=== PATIENT | female | born 1985 | race Caucasian/White ===

== ENCOUNTER 2019-07-06 16:48 | Emergency (ER) | payer MEDICARE, OTHER ==
--- NOTE | 2019-07-06 16:54 | ER Report ---
History and Physical Time Seen By MD: 16:51 HPI/ROS CHIEF COMPLAINT: Suicide attempt HISTORY OF PRESENT ILLNESS: 33-year-old female patient presents to emergency room with complaint of a suicide attempt. Patient was brought in by the [facility]. Patient states that she has been having some financial problems, concerns about getting her associate financial representative for going to community [employer]. She also states that she has problems with a friend of hers. She states that he had developed feelings for her which she did not reciprocate. Patient denies having any nausea, vomiting or diarrhea. She has taken almost a full 30 day supply of gabapentin, Seroquel as well as a bottle of Benadryl. She states she took that last night at 7 PM. She states that she feels like she has a dry mouth and is very tired today. The police state that they were contacted by the [facility] where she is living. When they got there they found her she was diaphoretic, and talking about how she was trying to commit suicide. They decided to detain her that time. Patient states she's also concerned about the possibility of her mother taking her dog. Which been placed at the animal correction for the time being. REVIEW OF SYSTEMS: Respiratory: No cough, no dyspnea. Cardiovascular: No chest pain, no palpitations. Gastrointestinal: No vomiting, no abdominal pain. Musculoskeletal: No back pain. Allergies: Coded Allergies: No Known Allergies (Verified Allergy, Unknown, 07/06/19) Home Meds Reported Medications Fluoxetine Hcl (PROZAC) 40 Mg Capsule, 40 MG PO QAM, CAPSULE 07/07/19 Gabapentin (NEURONTIN) 100 Mg Capsule, 200 MG PO TID PRN for ANXIETY, CAPSULE 07/07/19 Quetiapine Fumarate (SEROQUEL) 100 Mg Tablet, 100 MG PO QHS 07/07/19 Past Medical/Surgical History Patient has a past medical history of occasional heartburn, frequent UTI, depression, anxiety, suicide attempt. Patient denies any surgical history. Reviewed Nurses Notes: Yes Constitutional Vital Sign - Last 24 Hours 07/06/19 07/06/19 07/06/19 07/06/19 16:48 17:00 17:08 17:18 Temp 98.2 Pulse 112 118 113 Resp 14 26 B/P (MAP) 147/97 (114) 147/97 Pulse Ox 95 97 92 O2 Delivery Room Air 8/607/06/19 07/06/19 07/06/19 17:37 17:48 17:53 18:00 Pulse 105 106 Resp 18 30 B/P (MAP) 126/83 (97) 136/106 (116) Pulse Ox 93 91 07/06/19 07/06/19 07/06/19 07/06/19 18:05 18:30 18:35 18:40 Pulse 99 96 99 Resp 24 24 52 B/P (MAP) 126/87 (100) Pulse Ox 93 92 07/06/19 07/06/19 07/06/19 07/06/19 19:00 19:10 19:30 19:35 Pulse 93 90 Resp 22 17 B/P (MAP) 122/84 (97) 116/81 (93) Pulse Ox 90 91 07/06/19 07/06/19 07/06/19 07/06/19 20:00 20:05 20:30 20:35 Pulse 94 91 Resp 8 7 B/P (MAP) 113/73 (86) 110/71 (84) Pulse Ox 92 91 07/06/19 07/06/19 07/06/19 07/06/19 20:40 21:10 21:40 21:45 Pulse 90 88 90 89 Resp 7 17 20 17 Pulse Ox 91 91 92 92 07/06/19 07/06/19 07/06/19 07/06/19 22:00 22:15 22:30 22:45 Pulse 89 90 87 84 B/P (MAP) 99/65 (76) 104/64 (77) Pulse Ox 92 92 91 91 07/06/19 07/06/19 07/06/19 07/06/19 22:50 23:00 23:05 23:20 Pulse 84 84 79 B/P (MAP) 93/61 (72) Pulse Ox 92 92 91 07/06/19 07/06/19 07/06/19 07/07/19 23:30 23:35 23:50 00:00 Pulse 81 74 Resp 22 20 B/P (MAP) 100/62 (75) 121/90 (100) Pulse Ox 92 91 07/07/19 07/07/19 07/07/19 07/07/19 00:05 00:10 00:30 00:55 Pulse 81 80 ??? B/P (MAP) 104/71 (82) Pulse Ox 89 93 8/7/19 01:00 B/P (MAP) ???/??? (6845) Physical Exam General Appearance: The patient is alert, has no immediate need for airway protection and no current signs of toxicity. Respiratory: Chest is non tender, lungs are clear to auscultation. Cardiac: regular rate and rhythm Gastrointestinal: Abdomen is soft and non tender, no masses, bowel sounds normal. Musculoskeletal: Neck: Neck is supple and non tender. Extremities have full range of motion and are non tender. Skin: No rashes or lesions. Psych: Patient is alert and oriented 4, she has a slow rate of speech. She does become lost in her thoughts when talking. She is a difficult time keeping her thoughts on task. DIFFERENTIAL DIAGNOSIS: After history and physical exam differential diagnosis was considered for suicide attempt, overdose attempt, depression. Medical Decision Making Data Points Result Diagram: 07/06/19 1744 07/07/19 0000 Laboratory Hematology Test 07/06/19 17:44 White Blood Count 12.4 k/uL (4.5-11.0) H Red Blood Count 4.50 M/uL (4.17-5.56) Hemoglobin 14.6 g/dL (12.0-16.0) Hematocrit 43.0 % (34.0-47.0) Mean Corpuscular Volume 95.7 fL (80.0-96.0) Mean Corpuscular Hemoglobin 32.5 pg (26.0-33.0) Mean Corpuscular Hemoglobin Concent 34.0 g/dL (32.0-36.0) Red Cell Distribution Width 13.1 % (11.5-14.5) Platelet Count 194 K/uL (150-450) Mean Platelet Volume 7.9 fL (7.2-11.1) Neutrophils (%) (Auto) 86.4 % (39.4-72.5) H Lymphocytes (%) (Auto) 8.5 % (17.6-49.6) L Monocytes (%) (Auto) 4.8 % (4.1-12.4) Eosinophils (%) (Auto) 0.0 % (0.4-6.7) L Basophils (%) (Auto) 0.3 % (0.3-1.4) Nucleated RBC Relative Count (auto) 0.1 /100WBC Neutrophils # (Auto) 10.7 K/uL (2.0-7.4) H Lymphocytes # (Auto) 1.1 K/uL (1.3-3.6) L Monocytes # (Auto) 0.6 K/uL (0.3-1.0) Eosinophils # (Auto) 0.0 K/uL (0.0-0.5) Basophils # (Auto) 0.0 K/uL (0.0-0.1) Nucleated RBC Absolute Count (auto) 0.01 K/uL Chemistry Test 07/06/19 17:44 07/07/19 00:00 Thyroid Stimulating Hormone (TSH) 0.74 uIU/ml (0.46-4.68) Sodium Level 138 mmol/L (137-145) Potassium Level 3.7 mmol/L (3.5-5.0) Chloride Level 118 mmol/L (98-107) Carbon Dioxide Level 22 mmol/L (22-31) Blood Urea Nitrogen 12 mg/dl (7-18) Creatinine 1.00 mg/dl (0.52-1.04) Glomerular Filtration Rate Calc > 60.0 Random Glucose 91 mg/dl (75-110) Calcium Level 8.1 mg/dl (8.4-10.2) Magnesium Level 2.2 mg/dl (1.7-2.2) Total Bilirubin 0.5 mg/dl (0.2-1.3) Aspartate Amino Transf (AST/SGOT) 163 U/L (0-35) Alanine Aminotransferase (ALT/SGPT) 70 U/L (0-56) Alkaline Phosphatase 52 U/L (0-126) Total Protein 5.2 g/dl (6.3-8.2) Albumin 2.9 g/dl (3.5-5.0) Coagulation Test 07/07/19 00:00 Prothrombin Time 15.2 seconds (12.0-14.4) Prothromb Time International Ratio 1.19 Toxicology Test 07/06/19 17:30 07/06/19 17:44 07/06/19 20:51 Urine Opiates Screen Negative Urine Barbiturates Screen Negative Ur Tricyclic Antidepressants Screen Negative Urine Phencyclidine Screen Negative Urine Amphetamines Screen Negative Urine Benzodiazepines Screen Negative Urine Cocaine Screen Negative Urine Cannabinoids Screen Negative Acetaminophen Level < 10 ug/ml Serum Alcohol < 10 mg/dl Salicylates Level 225 mg/L Salicylate Last Dose Date unk Urinalysis Test 07/06/19 17:30 Urine Color Bria Urine Clarity Slightly-cloudy Urine pH Color interference Urine Specific [place] Color interference Urine Protein Color interference Urine Glucose (UA) Color interference Urine Ketones Color interference Urine Blood Color interference Urine Nitrite Color interference Urine Bilirubin Color interference Urine Urobilinogen Color interference Urine Leukocyte Esterase Color interference Urine RBC 3 /HPF (0-2/HPF) Urine WBC 28 /HPF (0-5/HPF) Urine Squamous Epithelial Cells Many /LPF (</=FEW) Urine Transitional Epithelial Cells Many /LPF (NONE-FEW) Urine Bacteria Few /HPF (NONE-FEW) Urine Hyaline Casts Few /LPF (NONE-FEW) Urine Mucus Few /HPF (NONE-FEW) Urine HCG, Qualitative Negative (NEGATIVE) Microbiology Microbiology Date/Time Source Procedure Growth Status 07/06/19 17:30 Clean Catch Midstream Ur Urine Culture - Final Complete EKG/Imaging EKG Interpretation 12 lead EKG done at 1824: Rhythm: normal sinus rhythm [place]: normal QRS: normal ST segments: normal Patient has prolonged QTC of 500 ms 12 lead EKG done at 2048: Rhythm: normal sinus rhythm [place]: normal QRS: normal ST segments: normal Patient has prolonged QTC of 499 ms ED Course/Re-evaluation ED Course Patient was admitted on exam room, history and physical were obtained. Differential diagnoses were considered. On examination lungs are clear, heart is regular, abdomen soft nontender. Patient did have a hard time maintaining her train of thought. She would become distracted very easily when speaking with her. Her speech was a little bit on the slow side, patient did manage to maintain good eye contact during interview. Lab work for a behavioral health admission were done. Patient had an elevated salicylate, elevated AST, negative Tylenol, negative alcohol. I discussed the case with poison control, they recommended getting EKG, monitoring salicylate level, hydrating with fluid. The recommend increasing the potassium to 4.5, magnesium 2. Patient was given a liter of normal saline. EKG was done. It did show a elevated QTC of 500 ms. I discussed the case with Dr. Childs, hospitalist, who felt with the overdose time being 24 hours ago the patient likely would be able to go to behavioral health. I discussed case with Dr. Guevara, who wanted to have repeat lab work done to make sure that labs were improving as well as a repeat EKG. I discussed the case again with poison control. They recommended monitoring the salicylate level every 2 hours and falls below 20, and monitoring the liver enzymes for the next 12 hours, with concerns that they may elevate if she had taken Tylenol. At that time I again spoke with Dr. Childs. He felt that there to be no point in admitting to behavioral health as he would be monitoring the patient is opposed to treating her condition. He felt that if her liver enzymes went up that she would need to be transferred to a higher level of care. I did repeat lab work, her AST decreased to 202, creatinine decreased from 1.4 down to 1.1, salicylate level continued to decrease down to 221, her ALT went from 90 down to 85. I spoke with Dr. Childs again, he felt that this time that he would be okay to repeat lab work at midnight and admitted to behavioral health as long as everything is looking good. He felt that patient was cleared medically with the improvement in her lab work. Decision to Disposition Date: Jul 07, 2019 Decision to Disposition Time: 00:00 Turned Over 07/06/2019 9:44:50 pm The care of the patient was turned over to Dr. Carver. Raymond Johnson [facility] I authorize my typed signature that I authenticated this report. Depart Departure Latest Vital Signs Vital Signs Date Time Temp Pulse Resp B/P (MAP) Pulse Ox O2 Delivery O2 Flow Rate FiO2 07/07/19 01:00 ???/??? (1665) 07/07/19 00:55 ??? 07/07/19 00:10 93 07/06/19 23:50 20 07/06/19 17:08 98.2 Room Air Impression: Primary Impression: Suicide attempt by drug overdose Condition: Improved Disposition: XFER TO [facility] ER - Title 25 MHE Evaluation Title 25 Evaluation Patient Detained By: Law Enforcement Referral Source: [facility] Date Patient Detained: Jul 06, 2019 Time Patient Detained: 17:50 Date Long Term Expires: Jul 09, 2019 Time Long Term Expires: 17:50 Legal Status: Police Hold: No Legal Status: Residence: State Resident Assessment Data Provided By: Patient, Law Enforcement HPI/ROS: Patient has been having difficult time with her finances as well as a friend. She decided she was going to commit suicide. She did take an overdose of her gabapentin, Seroquel, Benadryl. Please read history of present illness from note for more details. Admit due to SI or Attempt: Yes Suicide Plan: Has Plan with Access Alcohol or Drugs Involved: No Mental Status Exam General Appearance: Unkept, Psychomotor Retardation Speech: Delayed, Rambling Mood: Dysthmic/Depressed Affect: Flat Thought Process: Flight of Ideas Thought Content: Suicidal Ideation Sensorium: Clear Cognition: Alert & Oriented-Person Memory: Immediate, Recent, Remote Insight Judgment: Fair Sleep: Normal Hallucinations: Denies Delusions: Denies Current Risk & History Current Dangerous Risk Assessm: Current Suicide Attempt Past Dangerous Risk Assessm: Suicide Ideation-last 6mo Previous Suicide Attempt: Past - High Lethality Previous Psychiatric Illness: Yes Previous Psychiatric Treatment: Yes Risk Assessment & Disposition Evaluated Risk Assessment: Patient has obvious plan, as well as means to carry out plans. At this time she has a high risk for suicidality. Impression: Primary Impression: Suicide attempt by drug overdose Meets Mental Illness Req.: Yes Meets Dangerousness Req.: Yes Emergency Long Term to be: Upheld Date of Decision: Jul 06, 2019 Time of Decision: 18:00 Patient is Medically Stable at: Yes Disposition: RAYMOND HASSAN Jul 06, 2019 16:54
[2019-07-06 18:06] LABS: PLATELET COUNT, AUTOMATED 194 K/uL (150-450)
[2019-07-06] MEDS ORDERED: NS(*) 0.9% 1000 ML BAG 1,000 ML IV ONE ×2 (18:30→20:25)
--- NOTE | 2019-07-06 18:57 | EKG ---
FACILITY: [facility] [place] PATIENT NAME: CHIO CARDOZO : [id number] MR: [id number] V: [id number] EXAM DATE: ORDERING PHYSICIAN: JOSE ANGEL VASQUEZ TECHNOLOGIST: JACKIE Test Reason : Blood Pressure : / mmHG Vent. Rate : 098 BPM Atrial Rate : 098 BPM P-R Int : 124 ms QRS Dur : 088 ms QT Int : 392 ms P-R-T Axes : 066 030 040 degrees QTc Int : 500 ms Normal sinus rhythm Prolonged QT Abnormal ECG No previous ECGs available Confirmed by ANITA RIVERO ([id number]) on 07/06/2019 8:12:04 PM Referred By: PEDRO Confirmed By:ANITA RIVERO
[2019-07-06] MEDS ORDERED: KCL (*) 20 MEQ/100 ML PREMIX 100 ML IV ONE (20:25)
[2019-07-06] MEDS ORDERED: MAGNESIUM SUL/D5W* 1 GM/100 ML 100 ML IVPB ONE (20:25)
--- NOTE | 2019-07-06 21:13 | EKG ---
FACILITY: [facility] [place] PATIENT NAME: CHIO CARDOZO : [id number] MR: [id number] V: [id number] EXAM DATE: ORDERING PHYSICIAN: JOSE ANGEL VASQUEZ TECHNOLOGIST: VON Eric Reason : ELEVATED QTC Blood Pressure : / mmHG Vent. Rate : 091 BPM Atrial Rate : 091 BPM P-R Int : 130 ms QRS Dur : 092 ms QT Int : 406 ms P-R-T Axes : 055 015 034 degrees QTc Int : 499 ms Normal sinus rhythm Nonspecific T wave abnormality Prolonged QT When compared with ECG of 06-JUL-2019 18:25, No significant change was found Confirmed by ANITA RIVERO ([id number]) on 07/07/2019 1:22:09 AM Referred By: Confirmed By:ANITA RIVERO
[2019-07-07 00:21] LABS: INR 1.19
--- NOTE | 2019-07-07 05:09 | EKG ---
FACILITY: [facility] - [place] PATIENT NAME: CHIO CARDOZO : [id number] MR: [id number] V: [id number] EXAM DATE: ORDERING PHYSICIAN: JOSE ANGEL VASQUEZ TECHNOLOGIST: VON Eric Reason : REPEAT EKG Blood Pressure : / mmHG Vent. Rate : 080 BPM Atrial Rate : 080 BPM P-R Int : 136 ms QRS Dur : 094 ms QT Int : 336 ms P-R-T Axes : 041 044 035 degrees QTc Int : 387 ms Sinus rhythm Possible left atrial enlargement Nonspecific T wave abnormality Abnormal ECG When compared with ECG of 06-JUL-2019 20:49, QT has shortened Confirmed by SCOUT FORD ([id number]) on 07/07/2019 1:26:53 PM Referred By: Confirmed By:SCOUT FORD
[2019-07-07] MEDS ORDERED: FLUO40CA76 PO (14:31)
[2019-07-07] MEDS ORDERED: QUET100T29 PO (14:31)
[2019-07-07] MEDS ORDERED: GABA-488 PO (14:31)
== END 2019-07-07 01:20 ==
LOC: ER 16:50
DX: T42.6X2A Poisoning by other antiepileptic and sedative-hypnotic drugs, intentional self-harm, initial encounter (principal); F41.9 Anxiety disorder, unspecified; F32.9 Major depressive disorder, single episode, unspecified; I45.81 Long QT syndrome; R79.89 Other specified abnormal findings of blood chemistry
CPT/HCPCS: 80305; 81001; 81025; 83735; 84443; 85025; 85610; 87088; 93005; 96361; 96365; 96366; 99284; G0480; J3475; J3480; J7030; 80320; 80329; 82040; 82247; 82310; 82374; 82435; 82565; 82947; 84075; 84132; 84155; 84295; 84450; 84460; 84520

== ENCOUNTER 2019-07-07 00:54 | Inpatient (IN) | payer MEDICARE, OTHER ==
[~2019-07-07] VITALS: Ht 167.6 cm; Wt 56.7 kg
[2019-07-07] MEDS ORDERED: MAG HYD/AL HYD/SIMETH 30ML UDC PO PRN (01:30)
[2019-07-07 02:05] VITALS: BP 120/80
--- NOTE | 2019-07-07 06:04 | EKG ---
FACILITY: [facility] [place] PATIENT NAME: CHIO CARDOZO : [id number] MR: [id number] V: [id number] EXAM DATE: ORDERING PHYSICIAN: MARK SANDHU TECHNOLOGIST: VON Test Reason : OD Blood Pressure : / mmHG Vent. Rate : 075 BPM Atrial Rate : 075 BPM P-R Int : 132 ms QRS Dur : 094 ms QT Int : 420 ms P-R-T Axes : 056 030 049 degrees QTc Int : 469 ms Sinus rhythm Possible Left atrial enlargement Nonspecific T wave abnormality Abnormal ECG Confirmed by SCOUT FORD ([id number]) on 07/07/2019 1:28:05 PM Referred By: Confirmed By:SCOUT FORD
[2019-07-07 06:42] LABS: PLATELET COUNT, AUTOMATED 151 K/uL (150-450)
[2019-07-07] MEDS: MULTIVITAMINS TAB PO SCH (08:34)
[2019-07-07] MEDS: THIAMINE HCL 100 MG TAB PO SCH (08:34)
[2019-07-07] MEDS: FOLIC ACID 1 MG TAB PO SCH (08:34)
[2019-07-07 09:09] VITALS: BP 109/68
[2019-07-07] MEDS: TRIMETH/SULFA DS 160-800MG TAB PO SCH ×2 (09:17→21:00)
[2019-07-07 09:31] VITALS: BP 109/68
[2019-07-07] MEDS: DIAZEPAM 10 MG TAB PO PRN ×4 (09:38→21:37)
[2019-07-07 10:51] VITALS: BP 98/68
[2019-07-07 13:10] VITALS: BP 107/70
[2019-07-07] MEDS ORDERED: QUET100T29 PO (14:31)
[2019-07-07] MEDS ORDERED: GABA-488 PO (14:31)
[2019-07-07] MEDS ORDERED: FLUO40CA76 PO (14:31)
--- NOTE | 2019-07-07 16:14 | EKG ---
FACILITY: [facility] - [place] PATIENT NAME: CHIO CARDOZO : [id number] MR: [id number] V: [id number] EXAM DATE: ORDERING PHYSICIAN: MARK SANDHU TECHNOLOGIST: Test Reason : previous abnormal EKG Blood Pressure : / mmHG Vent. Rate : 064 BPM Atrial Rate : 064 BPM P-R Int : 130 ms QRS Dur : 088 ms QT Int : 444 ms P-R-T Axes : 060 039 031 degrees QTc Int : 458 ms Sinus rhythm Possible left atrial enlargement Nonspecific T wave findings - similar to previous Confirmed by SCOUT FORD ([id number]) on 07/07/2019 6:32:36 PM Referred By: Confirmed By:SCOUT FORD
[2019-07-07 17:25] VITALS: BP 100/70
[2019-07-07] MEDS ORDERED: DIAZEPAM 10 MG TAB ONE (18:12)
[2019-07-08 06:27] VITALS: BP 92/57
[2019-07-08] MEDS: FOLIC ACID 1 MG TAB PO SCH (08:50)
[2019-07-08] MEDS: TRIMETH/SULFA DS 160-800MG TAB PO SCH ×3 (08:50→20:51)
[2019-07-08] MEDS: MULTIVITAMINS TAB PO SCH (08:50)
[2019-07-08] MEDS: THIAMINE HCL 100 MG TAB PO SCH (08:51)
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
[2019-07-08 09:00] VITALS: BP 94/50
--- NOTE | 2019-07-08 12:04 | BHS Progress Note ---
[facility] - Subjective Progress Notes Subjective "Someone tries to kill themselves, and you treat them like dirt". Patient responding to this provider's attempts to motivate patient to go to therapy group in an effort to get well. Patient stating "It isn't mandatory., and it is stupid." Patient showing little motivation to get well today, will continue to encourage compliance, and will make contact with her Mother, with whome patient has resided her whole adult life. Patient may need an extension hearing if relationship with mother cannot reconcile, as patient will be homeless, with no finances, and thus far has showed limited interest in recovery. Suicidal Ideation: Resolving Homicidal Ideation: None [facility] - Objective Physical Exam Vital Signs Vital Signs Date Time Temp Pulse Resp B/P (MAP) Pulse Ox O2 Delivery O2 Flow Rate FiO2 07/08/19 09:00 99.1 94 12 94/50 (65) 94 Room Air 07/07/19 13:15 1.0 Muscle Strength and Tone: WNL Gait and Station: Steady [facility] Medications Reviewed: Side Effects, Benefits of Medication, Risks Allergies Reviewed: No Mental Status Exam General Appearance: Casual, Well Groomed; No Good Eye Contact, No Cooperative, No Polite, No Good Interaction; Psychomotor Retardation Speech: Clear, Delayed Mood: Dysthmic/Depressed Affect: Sad, Withdrawn, Agitated Thought Process: Organized, Logical, Goal Directed; No Loose Associations, No Flight of Ideas Thought Content: Suicidal Ideation (resolving somewhat); No Homicidal Ideation, No Delusions, No Auditory Halllucinations, No Visual Hallucinations, No Thought Broadcasting, No Ideas of Reference, No Obsessions, No Compulsions Sensorium: Clear Cognition: Alert & Oriented-Person, Alert & Oriented-Place, Alert & Oriented- Time; No Evdcz-Mimabjrp-Tvbbnqvsu (partially) Memory: Immediate, Recent, Remote Intelligence: Average Insight Judgment: Poor (limited due to maladaptive stress coping mechanisms, a nd continued drug, alcohol use. 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 borderline and dependent. Last Edited By: Mark Sandhu on Jul 08, 2019 12:01 Status: Chronic (3) Major depression, recurrent Status: Chronic Condition 1. continue to encourage compliance with treatment. 2. evaluate need of hearing. 3. historical poor use of medications. 4. patient in need of rehab. Problem Qualifiers (1) Major depression, recurrent: Major depression episode severity: severe Psychotic features: without psychotic features MARK SANDHU MD Jul 08, 2019 12:04
[2019-07-08 13:00] VITALS: BP 98/54
[2019-07-08] MEDS: IBUPROFEN 600 MG TAB PO PRN (13:35)
--- NOTE | 2019-07-08 15:06 | Antimicrobial Stewardship ---
Antimicrobial Stewardship Empiricly appropriate: Yes (On Bactrim DS bid for UTI) Approriate Cultures done: Yes Reviewed for Drug Interaction: Yes Clinically stable/improving: Yes Determine cumulative duration: 3-7 days MADI PEPE Jul 08, 2019 15:06
[2019-07-08 17:05] VITALS: BP 104/65
[2019-07-08] MEDS: QUEtiapine FUM 100 MG TAB PO SCH (20:50)
[2019-07-09 04:00] VITALS: BP 96/53
[2019-07-09] MEDS: THIAMINE HCL 100 MG TAB PO SCH (08:22)
[2019-07-09] MEDS: TRIMETH/SULFA DS 160-800MG TAB PO SCH ×2 (08:22→20:33)
[2019-07-09] MEDS: FOLIC ACID 1 MG TAB PO SCH (08:22)
[2019-07-09] MEDS: MULTIVITAMINS TAB PO SCH (08:22)
--- NOTE | 2019-07-09 10:41 | BHS Progress Note ---
[facility] - Subjective Progress Notes Subjective Patient remains very irritated, sarcastic, with inconsistent thought processes, Patient continues to recover from significant overdose with intentions of suicide, and psychotic features, patient flushed cell phone down toilet in [employer], due to paranoia. Patient's Mother verbalized concerns of psychosis at home for the last two months, potentially due to cough syrup abuse. Patient not taking an active role in her treatment at this time. Patient will need a ten day extension hearing today, in order to have time for resolution of current symptoms, and to promote a stable living situation, upon discharge. Suicidal Ideation: Resolving Homicidal Ideation: None [facility] - Objective Physical Exam Vital Signs Vital Signs Date Time Temp Pulse Resp B/P (MAP) Pulse Ox O2 Delivery O2 Flow Rate FiO2 07/09/19 04:00 98.6 61 15 96/53 (67) 93 Room Air 07/07/19 13:15 1.0 Muscle Strength and Tone: WNL Gait and Station: Steady [facility] Medications Reviewed: Side Effects, Benefits of Medication, Risks Allergies Reviewed: No Mental Status Exam General Appearance: Casual, Well Groomed; No Good Eye Contact, No Cooperative, No Polite, No Good Interaction; Psychomotor Agitation; No Psychomotor Retardation Speech: Clear, Spontaneous, Normal Rate, Normal Rhythm, Normal Volume; No Delayed Mood: Dysthmic/Depressed Affect: Sad, Withdrawn, Agitated Thought Process: No Organized, No Logical; Goal Directed, Loose Associations; No Flight of Ideas Thought Content: Suicidal Ideation (resolving somewhat); No Homicidal Ideation, No Delusions, No Auditory Halllucinations, No Visual Hallucinations, No Thought Broadcasting, No Ideas of Reference, No Obsessions, No Compulsions Sensorium: Clear Cognition: Alert & Oriented-Person, Alert & Oriented-Place, Alert & Oriented- Time; No Todoy-Jyoiqulw-Yoqhachoa (partially) Memory: Immediate, Recent, Remote Intelligence: Average Insight Judgment: Poor (limited due to maladaptive stress coping mechanisms, and continued drug, alcohol use. ) Result Diagram: 07/07/1963007/07/19630 [facility] Assessment and Plan Sfpo-cw-Dyyk Encounter Date: Jul 09, 2019 Vjqt-tc-Haid Encounter Time: 10:30 [facility] Plan: Necessary Precautions, Individual/Group Therapy, Admin/Titrate Meds, Educate Patient Tobacco Medications: Not Appropriate Condition Multpiple Antipsychotics Used: No Problems: (1) Substance induced mood disorder Optional Permanent Comment: cough syrup, alcohol, cannabis, psychotic symptoms possibly related to use. 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 borderline and dependent. Likely borderline personality disorder with dependent traits. Last Edited By: Mark Sandhu on Jul 09, 2019 10:39 Status: Chronic (3) Major depression, recurrent Status: Chronic Condition 1. continue treatment. 2. encourage intermediate placement to learn independent living skills in this patient with highly limited life skills. 3. review medications. Problem Qualifiers (1) Major depression, recurrent: Major depression episode severity: severe Psychotic features: with psychotic features MARK SANDHU MD Jul 09, 2019 10:41
[2019-07-09] MEDS: FLUoxetine HCL 20 MG CAP PO SCH (11:13)
[2019-07-09 12:25] VITALS: BP 102/68
[2019-07-09 18:30] VITALS: BP 115/74
[2019-07-09] MEDS: QUEtiapine FUM 100 MG TAB PO SCH (20:33)
[2019-07-10 06:13] VITALS: BP 103/77
[2019-07-10] MEDS: MULTIVITAMINS TAB PO SCH (07:58)
[2019-07-10] MEDS: FOLIC ACID 1 MG TAB PO SCH (07:58)
[2019-07-10] MEDS: FLUoxetine HCL 20 MG CAP PO SCH (07:58)
[2019-07-10] MEDS: THIAMINE HCL 100 MG TAB PO SCH (07:58)
[2019-07-10] MEDS: TRIMETH/SULFA DS 160-800MG TAB PO SCH ×2 (07:58→21:35)
--- NOTE | 2019-07-10 10:58 | BHS Progress Note ---
[facility] - Subjective Progress Notes Subjective " I'm okay. I slept decent. I made an impulsive mistake and I'm here doing my penance." She denies Si today reporting that her last SI was the day the she took the impulsive overdose. She rates her depression level a 7, anxiety level an 8, anger 4. Suicidal Ideation: None Homicidal Ideation: None [facility] - Objective Physical Exam Vital Signs Vital Signs Date Time Temp Pulse Resp B/P (MAP) Pulse Ox O2 Delivery O2 Flow Rate FiO2 07/10/19 06:13 98.8 61 15 103/77 (86) 93 Room Air 07/07/19 13:15 1.0 Muscle Strength and Tone: WNL Gait and Station: Steady [facility] Medications Reviewed: Side Effects, Benefits of Medication, Risks Allergies Reviewed: No Mental Status Exam General Appearance: Casual, Well Groomed, Good Eye Contact, Cooperative; No Polite, No Good Interaction; Psychomotor Agitation; No Psychomotor Retardation Speech: Clear, Spontaneous, Normal Rate, Normal Rhythm, Normal Volume; No Delayed Mood: Dysthmic/Depressed Affect: Sad, Withdrawn, Agitated Thought Process: No Organized, No Logical; Goal Directed, Loose Associations; No Flight of Ideas Thought Content: Suicidal Ideation (denies today); No Homicidal Ideation, No Delusions, No Auditory Halllucinations, No Visual Hallucinations, No Thought Broadcasting, No Ideas of Reference, No Obsessions, No Compulsions Sensorium: Clear Cognition: Alert & Oriented-Person, Alert & Oriented-Place, Alert & Oriented- Time; No Sayoj-Wjparfpj-Wabwwcwft (partially) Memory: Immediate, Recent, Remote Intelligence: Average Insight Judgment: Poor (limited due to maladaptive stress coping mechanisms, and continued drug, alcohol use. ) Result Diagram: 07/07/1931 07/07/19630 [facility] Assessment and Plan Umop-rr-Erzd Encounter Date: Jul 10, 2019 Tapo-uf-Cjwi Encounter Time: 09:45 [facility] Plan: Necessary Precautions, Individual/Group Therapy, Admin/Titrate Meds, Educate Patient Tobacco Medications: Not Appropriate Condition Multpiple Antipsychotics Used: No Problems: (1) Substance induced mood disorder Optional Permanent Comment: cough syrup, alcohol, cannabis, psychotic symptoms possibly related to use. 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 borderline and dependent. Likely borderline personality disorder with dependent traits. Last Edited By: Fransico Calderon on Jul 09, 2019 10:39 Status: Chronic Condition Client is seen in treatment team room with therapist and RN in attendance. She reports that her sleep is decent. She acknowledges feeling depressed with anxiety without thoughts of self harm. She indicates that her plan is to return home to her mother and resume treatment with her psychiatric providers in [facility]. No medication changes today. Will continue to monitor and provide support. MIHAELA ASHER NP Jul 10, 2019 10:58
[2019-07-10 11:55] VITALS: BP 98/56
[2019-07-10 20:15] VITALS: BP 112/65
[2019-07-10] MEDS: QUEtiapine FUM 100 MG TAB PO SCH (21:35)
[2019-07-11 06:14] VITALS: BP 92/53
[2019-07-11] MEDS: MULTIVITAMINS TAB PO SCH (07:57)
[2019-07-11] MEDS: FOLIC ACID 1 MG TAB PO SCH (07:57)
[2019-07-11] MEDS: THIAMINE HCL 100 MG TAB PO SCH (07:57)
[2019-07-11] MEDS: FLUoxetine HCL 20 MG CAP PO SCH (07:57)
[2019-07-11] MEDS: TRIMETH/SULFA DS 160-800MG TAB PO SCH ×2 (07:57→21:39)
[2019-07-11] MEDS: IBUPROFEN 600 MG TAB PO PRN (07:57)
--- NOTE | 2019-07-11 10:23 | EKG ---
FACILITY: [facility] PATIENT NAME: CHIO CARDOZO : [id number] MR: [id number] V: [id number] EXAM DATE: ORDERING PHYSICIAN: MIHAELA ASHER TECHNOLOGIST: ARACELIS Test Reason : OD Blood Pressure : / mmHG Vent. Rate : 052 BPM Atrial Rate : 052 BPM P-R Int : 124 ms QRS Dur : 080 ms QT Int : 438 ms P-R-T Axes : 059 055 026 degrees QTc Int : 407 ms Sinus bradycardia Otherwise normal ECG Confirmed by ESTHER BORJA ([id number]) on 07/11/2019 6:13:56 PM Referred By: Sophie ASHER Confirmed By:ESTHER BORJA
--- NOTE | 2019-07-11 10:39 | BHS Progress Note ---
[facility] - Subjective Progress Notes Subjective "I'm okay. Just doing what I need to do." Depression level rated 7, anxiety 8, anger 0, SI denied. She reports sleeping "decent" with a little tossing and turning. She denies needs and has a plan to work on her relapse prevention plan today. Suicidal Ideation: None Homicidal Ideation: None [facility] - Objective Physical Exam Vital Signs Vital Signs Date Time Temp Pulse Resp B/P (MAP) Pulse Ox O2 Delivery O2 Flow Rate FiO2 07/11/19 06:14 98.9 52 92/53 (66) 94 Room Air 07/10/19 20:15 12 07/07/19 13:15 1.0 Muscle Strength and Tone: WNL Gait and Station: Steady [facility] Medications Reviewed: Side Effects, Benefits of Medication, Risks Allergies Reviewed: No Mental Status Exam General Appearance: Casual, Well Groomed, Good Eye Contact, Cooperative, Polite, Good Interaction; No Unkept, No Tearful, No Psychomotor Retardation Speech: Clear, Spontaneous, Normal Rate, Normal Rhythm, Normal Volume; No Delayed Mood: Dysthmic/Depressed Affect: Sad, Withdrawn, Anxious, Agitated Thought Process: Organized, Logical, Goal Directed; No Loose Associations, No Flight of Ideas Thought Content: No Suicidal Ideation (denies today), No Homicidal Ideation, No Delusions, No Auditory Halllucinations, No Visual Hallucinations, No Thought Broadcasting, No Ideas of Reference, No Obsessions, No Compulsions Sensorium: Clear Cognition: Alert & Oriented-Person, Alert & Oriented-Place, Alert & Oriented- Time; No Flyzy-Bmtqaxop-Cpmcuyeer (partially) Memory: Immediate, Recent, Remote Intelligence: Average Insight Judgment: Poor (limited due to maladaptive stress coping mechanisms, and continued drug, alcohol use. ) Result Diagram: 07/07/1963007/07/19630 [facility] Assessment and Plan Nllj-kp-Vlxz Encounter Date: Jul 11, 2019 Jxcc-tp-Mzmm Encounter Time: 09:30 [facility] Plan: Necessary Precautions, Individual/Group Therapy, Admin/Titrate Meds, Educate Patient Tobacco Medications: Not Appropriate Condition Multpiple Antipsychotics Used: No Problems: (1) Substance induced mood disorder Optional Permanent Comment: cough syrup, alcohol, cannabis, psychotic symptoms possibly related to use. 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 borderline and dependent. Likely borderline personality disorder with dependent traits. Last Edited By: Fransico Calderon on Jul 09, 2019 10:39 Status: Chronic Condition She reports ongoing depression and anxiety symptoms without thoughts of suicide or self harm. She denies needs and is cooperative with staff. She reports having future appointments scheduled with her psychiatrist and therapist in [place]. PLAN: Treatment team meeting tomorrow morning with her mother involved per conference call. Will continue prozac and seroquel at current doses, have not resumed full previous doses status post overdose. Will obtain EKG today. Continue discharge planning. MIHAELA ASHER NP Jul 11, 2019 10:39
[2019-07-11 13:05] VITALS: BP 100/60
[2019-07-11] MEDS: QUEtiapine FUM 100 MG TAB PO SCH (21:39)
[2019-07-11 21:45] VITALS: BP 107/70
[2019-07-12 06:27] VITALS: BP 99/59
[2019-07-12] MEDS: TRIMETH/SULFA DS 160-800MG TAB PO SCH ×2 (08:09→21:13)
[2019-07-12] MEDS: MULTIVITAMINS TAB PO SCH (08:09)
[2019-07-12] MEDS: FLUoxetine HCL 20 MG CAP PO SCH (08:09)
[2019-07-12] MEDS: FOLIC ACID 1 MG TAB PO SCH (08:09)
[2019-07-12] MEDS: THIAMINE HCL 100 MG TAB PO SCH (08:09)
[2019-07-12 10:23] VITALS: BP 114/70
--- NOTE | 2019-07-12 12:24 | BHS Progress Note ---
[facility] - Subjective Progress Notes Subjective Patient noted to be putting forth an effort to grow and develop, and does not seem to be just merely playing along. Patient talkative today, with much less finger pointing at others. Will start planning for discharge toward the end of the ten day period. Will encourage that growth and development continue on an outpatient status. Patient demonstrating intelligence, and reflecting on substance use, particularly psychotic symptoms that were present prior to admission. Mood improving, no suicidal or homicidal ideation. No medication changes. Suicidal Ideation: None Homicidal Ideation: None [facility] - Objective Physical Exam Vital Signs Vital Signs Date Time Temp Pulse Resp B/P (MAP) Pulse Ox O2 Delivery O2 Flow Rate FiO2 07/12/19 10:23 98.8 59 114/70 (85) 98 Room Air 07/11/19 13:05 16 Muscle Strength and Tone: WNL Gait and Station: Steady [facility] Medications Reviewed: Side Effects, Benefits of Medication, Risks Allergies Reviewed: No Mental Status Exam General Appearance: Casual, Well Groomed, Good Eye Contact, Cooperative, Polite, Good Interaction; No Unkept, No Tearful; Psychomotor Agitation (minimal ); No Psychomotor Retardation, No Bizarre Mannerisms, No Tics Speech: Clear, Spontaneous, Normal Rate, Normal Rhythm, Normal Volume, Normal Tone; No Delayed Mood: Dysthmic/Depressed (improving) Affect: Sad, Withdrawn, Anxious, Agitated Thought Process: Organized, Logical, Goal Directed; No Loose Associations, No Flight of Ideas Thought Content: No Suicidal Ideation, No Homicidal Ideation, No Delusions, No Auditory Halllucinations, No Visual Hallucinations, No Thought Broadcasting, No Ideas of Reference, No Obsessions, No Compulsions Sensorium: Clear Cognition: Alert & Oriented-Person, Alert & Oriented-Place, Alert & Oriented- Time; No Txnhv-Swuhaywb-Vbbcikzbu (partially) Memory: Immediate, Recent, Remote Intelligence: Average Insight Judgment: Poor (limited due to maladaptive stress coping mechanisms, and continued drug, alcohol use. ) [facility] Assessment and Plan Qkyr-ru-Iqvd Encounter Date: Jul 12, 2019 Dvgz-iq-Aptt Encounter Time: 12:00 [facility] Plan: Necessary Precautions, Individual/Group Therapy, Admin/Titrate Meds, Educate Patient Tobacco Medications: Not Appropriate Condition Multpiple Antipsychotics Used: No Problems: (1) Substance induced mood disorder Optional Permanent Comment: cough syrup, alcohol, cannabis, psychotic symptoms possibly related to use. 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 borderline and dependent. Likely borderline personality disorder with dependent traits. Last Edited By: Mark Sandhu on Jul 09, 2019 10:39 Status: Chronic (3) Major depression, recurrent Status: Chronic Condition 1. continue treatment. 2. repeat UA 3. labs tomorrow. 4. no medication changes. Problem Qualifiers (1) Major depression, recurrent: Major depression episode severity: severe Psychotic features: with psychotic features MARK SANDHU MD Jul 12, 2019 12:24
[2019-07-12] MEDS: IBUPROFEN 600 MG TAB PO PRN ×2 (13:43→20:15)
[2019-07-12 21:09] VITALS: BP 102/75
[2019-07-12] MEDS: QUEtiapine FUM 100 MG TAB PO SCH (21:13)
[2019-07-13 05:54] VITALS: BP 100/55
[2019-07-13 07:36] LABS: LDL CHOLESTEROL 108 mg/dl
[2019-07-13] MEDS: FLUoxetine HCL 20 MG CAP PO SCH (08:12)
[2019-07-13] MEDS: FOLIC ACID 1 MG TAB PO SCH (08:12)
[2019-07-13] MEDS: TRIMETH/SULFA DS 160-800MG TAB PO SCH ×2 (08:12→21:27)
[2019-07-13] MEDS: THIAMINE HCL 100 MG TAB PO SCH (08:12)
[2019-07-13] MEDS: MULTIVITAMINS TAB PO SCH (08:12)
[2019-07-13 09:18] LABS: PLATELET COUNT, AUTOMATED 253 K/uL (150-450)
--- NOTE | 2019-07-13 10:11 | BHS Progress Note ---
[facility] - Subjective Progress Notes Subjective Patient cooperative today, and taking an honest active role in her treatment, participating in group and individual therapy. No medication changes today, sleep and appetite good, mood good and continues to improve. Will look at discharge toward the end of the week. No other concerns. Suicidal Ideation: None Homicidal Ideation: None [facility] - Objective Physical Exam Vital Signs Vital Signs Date Time Temp Pulse Resp B/P (MAP) Pulse Ox O2 Delivery O2 Flow Rate FiO2 07/13/19 05:54 99.0 47 100/55 (70) 95 Room Air 07/11/19 13:05 16 Muscle Strength and Tone: WNL Gait and Station: Steady [facility] Medications Reviewed: Side Effects, Benefits of Medication, Risks Allergies Reviewed: No Mental Status Exam General Appearance: Casual, Well Groomed, Good Eye Contact, Cooperative, Polite, Good Interaction; No Unkept, No Tearful; Psychomotor Agitation (minimal ); No Psychomotor Retardation, No Bizarre Mannerisms, No Tics Speech: Clear, Spontaneous, Normal Rate, Normal Rhythm, Normal Volume, Normal Tone; No Delayed Mood: Dysthmic/Depressed (improving) Affect: Sad, Withdrawn, Anxious, Agitated Thought Process: Organized, Logical, Goal Directed; No Loose Associations, No Flight of Ideas Thought Content: No Suicidal Ideation, No Homicidal Ideation, No Delusions, No Auditory Halllucinations, No Visual Hallucinations, No Thought Broadcasting, No Ideas of Reference, No Obsessions, No Compulsions Sensorium: Clear Cognition: Alert & Oriented-Person, Alert & Oriented-Place, Alert & Oriented- Time; No Qocri-Jkofqrlf-Smnmjifun (partially) Memory: Immediate, Recent, Remote Intelligence: Average Insight Judgment: Poor (limited due to maladaptive stress coping mechanisms, and continued drug, alcohol use. ) Result Diagram: 07/13/1961707/13/19617 [facility] Assessment and Plan Plfj-pw-Gdsn Encounter Date: Jul 13, 2019 Vmgk-gb-Ximy Encounter Time: 11:00 [facility] Plan: Necessary Precautions, Individual/Group Therapy, Admin/Titrate Meds, Educate Patient Tobacco Medications: Not Appropriate Condition Multpiple Antipsychotics Used: No Problems: (1) Substance induced mood disorder Optional Permanent Comment: cough syrup, alcohol, cannabis, psychotic symptoms possibly related to use. 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 borderline and de pendent. Likely borderline personality disorder with dependent traits. Last Edited By: Mark Sandhu on Jul 09, 2019 10:39 Status: Chronic (3) Major depression, recurrent Status: Chronic Condition 1. continue treatment. 2. discharge toward end of week. 3. no medication changes. 4. labwork continues to normalize. Problem Qualifiers (1) Major depression, recurrent: Major depression episode severity: severe Psychotic features: with psychotic features MARK SANDHU MD Jul 13, 2019 10:11
[2019-07-13] MEDS: IBUPROFEN 600 MG TAB PO PRN ×2 (12:09→18:50)
[2019-07-13 13:11] VITALS: BP 121/69
[2019-07-13] MEDS: QUEtiapine FUM 100 MG TAB PO SCH (21:27)
[2019-07-13 21:36] VITALS: BP 111/72
[2019-07-14 04:14] VITALS: BP 96/57
[2019-07-14] MEDS: FLUoxetine HCL 20 MG CAP PO SCH (08:21)
[2019-07-14] MEDS: THIAMINE HCL 100 MG TAB PO SCH (08:21)
[2019-07-14] MEDS: FOLIC ACID 1 MG TAB PO SCH (08:21)
[2019-07-14] MEDS: MULTIVITAMINS TAB PO SCH (08:21)
[2019-07-14] MEDS ORDERED: TRIMETH/SULFA DS 160-800MG TAB PO ONE (08:30)
[2019-07-14] MEDS: IBUPROFEN 600 MG TAB PO PRN (12:15)
--- NOTE | 2019-07-14 13:27 | BHS Progress Note ---
[facility] - Subjective Progress Notes Subjective Patient continues to show an active role in her treatment. Looking forward to going home, and avoiding further substance use. Will plan for discharge tomorrow. Will continue current medications. Sleep and appetite intact. No other concerns. Suicidal Ideation: None Homicidal Ideation: None [facility] - Objective Physical Exam Vital Signs Vital Signs Date Time Temp Pulse Resp B/P (MAP) Pulse Ox O2 Delivery O2 Flow Rate FiO2 07/14/19 04:14 97.7 48 15 96/57 (70) 94 Room Air Muscle Strength and Tone: WNL Gait and Station: Steady [facility] Medications Reviewed: Side Effects, Benefits of Medication, Risks Allergies Reviewed: No Mental Status Exam General Appearance: Casual, Well Groomed, Good Eye Contact, Cooperative, Polite, Good Interaction; No Unkept, No Tearful; Psychomotor Agitation (minimal ); No Psychomotor Retardation, No Bizarre Mannerisms, No Tics Speech: Clear, Spontaneous, Normal Rate, Normal Rhythm, Normal Volume, Normal Tone; No Delayed Mood: Dysthmic/Depressed (improving) Affect: Full and Appropriate, Calm; No Sad, No Withdrawn, No Anxious, No Agitated Thought Process: Organized, Logical, Goal Directed; No Loose Associations, No Flight of Ideas Thought Content: No Suicidal Ideation, No Homicidal Ideation, No Delusions, No Auditory Halllucinations, No Visual Hallucinations, No Thought Broadcasting, No Ideas of Reference, No Obsessions, No Compulsions Sensorium: Clear Cognition: Alert & Oriented-Person, Alert & Oriented-Place, Alert & Oriented- Time, Otdse-Ojxasbek-Fpjwftqzn Memory: Immediate, Recent, Remote Intelligence: Average Insight Judgment: Poor (in absence of alcohol and substance use. ), Fair Result Diagram: 07/13/1961707/13/19617 [facility] Assessment and Plan Mxiy-xw-Adhr Encounter Date: Jul 14, 2019 Vvrg-gr-Gqvf Encounter Time: 10:00 [facility] Plan: Necessary Precautions, Individual/Group Therapy, Admin/Titrate Meds, Educate Patient Tobacco Medications: Not Appropriate Condition Multpiple Antipsychotics Used: No Problems: (1) Substance induced mood disorder Optional Permanent Comment: cough syrup, alcohol, cannabis, psychotic symptoms possibly related to use. 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 borderline and dependent. Likely borderline personality disorder with dependent traits. Last Edited By: Mark Sandhu on Jul 09, 2019 10:39 Status: Chronic (3) Major depression, recurrent Status: Chronic Condition 1. continue treatment 2. possible discharge tomorrow. Problem Qualifiers (1) Major depression, recurrent: Major depression episode severity: severe Psychotic features: with psychotic features MARK SANDHU MD Jul 14, 2019 13:27
[2019-07-14 13:31] VITALS: BP 109/62
[2019-07-14] MEDS: QUEtiapine FUM 100 MG TAB PO SCH (20:39)
[2019-07-14 21:20] VITALS: BP 101/66
[2019-07-15 05:14] VITALS: BP 97/59
[2019-07-15] MEDS: FLUoxetine HCL 20 MG CAP PO SCH (08:38)
[2019-07-15] MEDS: FOLIC ACID 1 MG TAB PO SCH (08:38)
[2019-07-15] MEDS: MULTIVITAMINS TAB PO SCH (08:39)
[2019-07-15] MEDS: THIAMINE HCL 100 MG TAB PO SCH (08:39)
[2019-07-15] MEDS ORDERED: FLUO-177 PO (10:20)
[2019-07-15] MEDS ORDERED: MULT-1379 PO (10:21)
[2019-07-15] MEDS ORDERED: IBUP600T22 PO (10:22)
--- NOTE | 2019-07-15 11:46 | BHS - Psychiatric Evaluation ---
ER - Title 25 M[facility] Evaluation Title 25 Evaluation Legal Status: Police Hold: No Admit due to SI or Attempt: Yes Suicide Plan: Has Plan with Access SUJATA MARRERO LPC Jul 15, 2019 11:46
--- NOTE | 2019-07-16 03:32 | SCHAAF DISCHARGE ---
DATE OF ADMISSION: July 07, 2019 DATE OF DISCHARGE: July 15, 2019 ATTENDING PHYSICIAN Fransico Calderon MD Patient was seen at approximately 0900 hours for note concerning this dictation on 15 July 2019. FINAL DIAGNOSES PER DSM-V Major depression, recurrent, severe, without psychotic features. Other substance use disorder. Alcohol use disorder, moderate. Cluster B and C personality traits. Patient in an overall supportive relationship with her mother. REASON FOR ADMISSION This is a 33-year-old single female who has been living with her mother in the [place] area. Patient noted on July 06, 2019, to have taken off in her vehicle from her home in [place], coming as far as [place], where she stayed in a hotel and overdosed. Patient then eventually noted by hotel personnel, was brought to the emergency room and admitted under an emergency detainment. Please see history and physical for full details. During her stay on the unit, patient was initially resistant and rebellious to care; however, patient quickly turned this around. Patient was placed on a 10- day court-ordered stay for longer care. Patient started to take an active role in her treatment and became very pleasant and cooperative by time of discharge. Her mood had improved. Patient demonstrating no parasuicidal behaviors, and patient was discharged back to home. PHYSICAL EXAMINATION Please see emergency room note. Notable for a 33-year-old female with overall thin body habitus. Vital signs at the time of admission: Temperature 98.2, pulse 118, respiratory rate 14, blood pressure 147/97, and pulse oximetry 97% on room air. At time of discharge from [facility], vital signs showed temperature 98.6, pulse 48 (patient asymptomatic), respiratory rate 14, blood pressure 97/59, and pulse oximetry 955 on room air. LABORATORY DATA CBC on 07/06/2019 notable for white blood cells slightly elevated at 12.4, otherwise unremarkable. Chemistry panel on 07/07/2019 notable for AST and ALT trending downward at 163 and 70. Toxicology screen negative at time of admission, with a nondetectable serum alcohol level. Salicylate level as high as 271 and falling. Please see electronic health record for elevated PT at the time of admission of 15.2. Urinalysis on 07/12/2019 unremarkable. CBC on 07/13/2019 overall unremarkable, MCV slightly elevated at 96.3 (trending down). CMP on 07/13/2019 notable for AST and ALT trending further down at 40 and 78. MENTAL STATUS EXAMINATION AT TIME OF DISCHARGE GENERAL APPEARANCE, BEHAVIOR AND ATTITUDE: This is a well-kept, smiling 33-year-old female making good eye contact. No periods of tearfulness. No bizarre mannerisms or tics. Patient interacting very well with this provider. SPEECH: Within normal limits. Regular rate, rhythm, volume and tone. MOOD: Described as improved. AFFECT: Full and mood-congruent. THOUGHT PROCESSES: Goal-directed and logical. Patient able to verbalize longer-term goals, which have been problematic for this patient, and able to verbalize an intention to avoid substance use, including cough syrup, when patient returns home. No loose associations or flight of ideas. THOUGHT CONTENT: Free of auditory or visual hallucinations, ideas of reference, thought broadcastings, delusions, obsessions or compulsions. Patient adamantly denying suicidal or homicidal ideation. SENSORIUM: Clear. COGNITION: Alert and oriented to person, place, time and situation. MEMORY: Immediate, recent and remote estimated intact. INTELLIGENCE: Average, based on interview. INSIGHT AND JUDGMENT: Considered grossly intact in the absence of substance use. RESULTS OF TESTING Imaging: None. Laboratory data: See above. CONSULTATIONS None. TREATMENT Patient received medications, participated in individual and group therapy. HOSPITAL COURSE Initially, patient was recovering from significant overdose on multiple medications. Patient initially rebellious and resistant to care, however, turning the corner quickly. Patient appeared to be an accurate historian and believable in her intentions to continue to improve after discharge. The patient took an active role in her treatment and therapy. Lower-dose medications were restarted, including Seroquel and Prozac, with good results. CONDITION OF PATIENT ON DISCHARGE Stable. Considered a minimal risk to herself or others, and appropriate for outpatient care in the absence of alcohol or substance use. DISPOSITION Patient discharged to home in the care of her mother, where she would follow up with meds and therapy at her home station in [place] . She would take medications as prescribed, including Seroquel 100 mg at bedtime and Prozac 20 mg every a.m. She was given the crisis line should symptoms return, and again agreed to abstain from alcohol, cough syrup and any other illicit substance use. Patient would continue to work long-term goals of attaining independence and seeking employment. The risks, benefits and alternatives of the above discharge plan were discussed. Informed consent was given to proceed with the above discharge plan by this cooperative patient. CONSTANTIN
== END 2019-07-15 12:17 | disposition home or self-care (01) | DRG 881 ==
LOC: BHS 00:54
PROVIDERS: ADMIT Psychiatry & Neurology Psychiatry; ATTEND Psychiatry & Neurology Psychiatry
DX: F32.9 Major depressive disorder, single episode, unspecified (principal); R45.851 Suicidal ideations; N39.0 Urinary tract infection, site not specified; F10.14 Alcohol abuse with alcohol-induced mood disorder; F60.3 Borderline personality disorder; F19.94 Other psychoactive substance use, unspecified with psychoactive substance-induced mood disorder; F12.10 Cannabis abuse, uncomplicated; F41.9 Anxiety disorder, unspecified; Z62.820 Parent-biological child conflict; Z62.810 Personal history of physical and sexual abuse in childhood
CPT/HCPCS: 36415; 80329; 81001; 82040; 82247; 82310; 82374; 82435; 82465; 82565; 82947; 83718; 83735; 84075; 84132; 84155; 84295; 84450; 84460; 84478; 84520; 85025; 87088; 93005